=== PATIENT | female | born 2000 | race African-American/Black ===

== ENCOUNTER 2018-06-12 17:48 | Emergency (ER) | payer OTHER, SELFPAY | END 2018-06-12 18:32 | disposition home or self-care (01) | LOC: MADERS 17:48 | DX: B00.2 Herpesviral gingivostomatitis and pharyngotonsillitis (principal) | CPT/HCPCS: 99283 ==

== ENCOUNTER 2018-06-13 15:39 | Emergency (ER) | payer SELFPAY | END 2018-06-13 16:10 | disposition home or self-care (01) | LOC: MADERS 15:39 | DX: K12.0 Recurrent oral aphthae (principal); R07.9 Chest pain, unspecified | CPT/HCPCS: 93005 ==